=== PATIENT | female | born 1940 | race Asian ===

== ENCOUNTER 2020-12-01 20:37 | Observation (INO) | payer MEDICARE ==
[~2020-12-01] VITALS: Ht 157.5 cm; Wt 58.4 kg
[2020-12-01 20:15] VITALS: BP 150/67
--- NOTE | 2020-12-01 21:00 | NUR ---
Patient arrived to unit at approx 2000 accompanied by EMS.Patient states that she believes she was bit on the toe by a copperhead snake. Patient reports 10/10 pain in her left foot/ankle. Fang najera present on left great toe. Erythema and bruising noted on left foot. Swelling measured- left great toe 10cm, Ball of left foot 24cm, left ankle [address] Kat, do not start [employer] unless swelling increases, or pain becomes significantly worse. Pain medications ordered. Poison control was notified at [facility], call received from poison control and updated on patient status. Q1 vascular checks and q1 hr measurements ordered and started. assessment complete, VS stable. call light in reach, reminded patient to call for assistnave before ambulating. Will continue to monitor.
[2020-12-01] MEDS ORDERED: HYDROcodone/APAP 5/325MG 1 TAB TABLET PO PRN (21:15)
[2020-12-01] MEDS ORDERED: MORPHINE SULFATE 2 MG/ML INJ. IVP PRN (21:15)
[2020-12-01] MEDS ORDERED: ONDANSETRON PF 4 MG/2 ML VIAL. IV PRN (21:15)
[2020-12-01] MEDS ORDERED: MORPHINE SULFATE 2 MG/ML INJ. IV PRN (22:45)
[2020-12-01 22:50] VITALS: BP 110/62
[2020-12-02 00:41] LABS: BASO % 0 % (0-3); EOS % 0 % (0-3); HEMOGLOBIN 12.7 g/dL (12.0-15.5); LYMPH % 15 % (24-48); MEAN CORPUSCULAR HEMOGLOBIN 32 pg (25-35); MEAN CORPUSCULAR HGB CONC 33 g/dL (31-37); MEAN CORPUSCULAR VOLUME 95 fL (79-100); MONO # 0.7 x10^3/uL (0.0-1.1); MONO % 10 % (0-9); NEUT # 5.2 x10^3/uL (1.8-7.7); NEUT % 75 % (31-73); PLATELET COUNT 215 x10^3/uL (140-400); RED BLOOD COUNT 4.02 x10^6/uL (3.50-5.40); WHITE BLOOD COUNT 6.9 x10^3/uL (4.0-11.0)
[2020-12-02 00:52] LABS: PROTHROMBIN TIME PATIENT 13.1 SEC (11.7-14.0)
[2020-12-02] MEDS ORDERED: LEVO75TA5 PO (01:20)
[2020-12-02] MEDS ORDERED: SIMV20TA18 PO (01:20)
[2020-12-02 03:05] VITALS: BP 107/53
--- NOTE | 2020-12-02 05:08 | NUR ---
Pt requesting to go home today. Pt states "i need to go home today. My is not in good health and i care for him" states that they have neighbors that will check on him occasionally.
[2020-12-02 06:54] LABS: PROTHROMBIN TIME PATIENT 12.9 SEC (11.7-14.0)
[2020-12-02 07:15] VITALS: BP 110/56
--- NOTE | 2020-12-02 08:32 | PDOC1 ---
History and Physical Date of Service: DOS: DATE: 12/02/20 TIME: 08:32 Chief Complaint: Chief Complain: Snake Bite History of Present Illness: HPI: 80 yo F with PMHx of hypothyroidism who is transferred from [facility] due to a snake bite on her left toe. Pt states she was in her garden and cleaning out her rubalcava when she turned around and a snake bite her on the left toe. She saw the snake was about 2 feet long, broad appearing and the head was bigger than the body, she believed it was a Copperhead after discussing with her . She endorses 1st toe pain and swelling and redness. Denies fevers, chest pain, dizziness, LOC, or other systemic symptoms Past Medical/Surgical History: PMH/PSH: PMHx: Hypothyroidism Allergies: Allergies: Coded Allergies: No Known Drug Allergies (Unverified , 12/01/20) Family History: Family History: Reviewed with no relevant findings. Social History: Social History: Denies alcohol tobacco and drug abuse. Current Medications: Current Medications Current Medications Ondansetron HCl (Zofran) 4 mg PRN Q6HRS PRN IV NAUSEA/VOMITING 1ST CHOICE Last administered on 12/01/20at 21:23; Start 12/01/20 at 21:15 Morphine Sulfate (Morphine Sulfate) 1 mg PRN Q2HR PRN IVP SEVERE PAIN 7-10 Last administered on 12/01/20at 21:25; Start 12/01/20 at 21:15; Stop 12/01/20 at 22:44; Status DC Acetaminophen/ Hydrocodone Bitart (Lortab 5/325) 1 tab PRN Q6HRS PRN PO MODERATE PAIN 4-6; Start 12/01/20 at 21:15 Morphine Sulfate (Morphine Sulfate) 2 mg PRN Q2HR PRN IV SEVERE PAIN 7-10 Last administered on 12/01/20at 23:49; Start 12/01/20 at 22:45 Active Scripts Active Reported Levothyroxine Sodium 75 Mcg Tablet 75 Mcg PO DAILYAC Simvastatin 20 Mg Tablet 20 Mg PO DAILY ROS: Review of Systems Review of System REVIEW OF SYSTEMS: GENERAL: Denies weakness SKIN: No bruising, hair changes or rashes. EYES: No blurred, double or loss of vision. NOSE AND THROAT: No history of nosebleeds, hoarseness or sore throat. HEART: No history of palpitations, chest pain or shortness of breath on exertion. LUNGS: Denies cough, hemoptysis, wheezing or shortness of breath. GASTROINTESTINAL: Denies changes in appetite, nausea, vomiting, diarrhea or constipation. GENITOURINARY: No history of frequency, urgency, hesitancy or nocturia. NEUROLOGIC: Denies history of numbness, tingling, or tremor. PSYCHIATRIC: No history of panic, anxiety or depression. ENDOCRINE: No history of heat or cold intolerance, polyuria or polydipsia. EXTREMITIES: Positive for toe pain and swelling. Physical Exam: Vital Signs: Vital Signs Date Time Temp Pulse Resp B/P (MAP) Pulse Ox O2 Delivery O2 Flow Rate FiO2 12/02/20 03:05 98.4 88 18 107/53 (71) 92 Room Air 98.4 Physcial Exam: GEN: No apparent distress. Alert and oriented HEENT: Normal cephalic, atraumatic, external auditory canals are patent EYES: Extraocular muscles are intact, pupil are equally round and reactive to light and accommodation MUSCULOSKELETAL: Well developed , well nourished, good range of motion ENDOCRINE: No thyromegaly was palpated LYMPHATICS: No cervical chain or axillary nodes were noted HEMATOPOIETIC: No bruising NECK: Supple, no JVD, no thyromegaly was noted LUNGS: Clear to auscultation in all lung anne without rhonchi or wheezing HEART: RRR, S!, S2 present. Peripheral pulses intact, no obvious murmurs noted ABDOMEN: Soft, nontender. Positive bowel sounds, no organomegaly, normal bowel sounds EXTREMITIES: Snake bite najera on the dorsal side of the 1st digit. Swelling up to the ankle. Redness only surrounding the bite najera. Palpable DP and PT pulses. NEUROLOGIC: Normal speech and tone. A&O x 3, moves all extremities, no obvious focal deficits PSYCHIATRIC: Normal affect, normal mood. Stable SKIN: No ulcerations or rashes, good skin turgor, no jaundice VASCULAR: Good capillary refill, neurovascular bundle appears to be intact Labs: Labs: Laboratory Tests Test 12/02/20 00:30 12/02/20 05:37 White Blood Count 6.9 x10^3/uL (4.0-11.0) Red Blood Count 4.02 x10^6/uL (3.50-5.40) Hemoglobin 12.7 g/dL (12.0-15.5) Hematocrit 38.0 % (36.0-47.0) Mean Corpuscular Volume 95 fL (79-100) Mean Corpuscular Hemoglobin 32 pg (25-35) Mean Corpuscular Hemoglobin Concent 33 g/dL (31-37) Red Cell Distribution Width 14.0 % (11.5-14.5) Platelet Count 215 x10^3/uL (140-400) Neutrophils (%) (Auto) 75 % (31-73) Lymphocytes (%) (Auto) 15 % (24-48) Monocytes (%) (Auto) 10 % (0-9) Eosinophils (%) (Auto) 0 % (0-3) Basophils (%) (Auto) 0 % (0-3) Neutrophils # (Auto) 5.2 x10^3/uL (1.8-7.7) Lymphocytes # (Auto) 1.0 x10^3/uL (1.0-4.8) Monocytes # (Auto) 0.7 x10^3/uL (0.0-1.1) Eosinophils # (Auto) 0.0 x10^3/uL (0.0-0.7) Basophils # (Auto) 0.0 x10^3/uL (0.0-0.2) Prothrombin Time 13.1 SEC (11.7-14.0) 12.9 SEC (11.7-14.0) Prothromb Time International Ratio 1.0 (0.8-1.1) 1.0 (0.8-1.1) Fibrinogen 325 mg/dL (200-440) 322 mg/dL (200-440) Laboratory Tests Test 12/02/20 00:30 12/02/20 05:37 White Blood Count 6.9 x10^3/uL (4.0-11.0) Red Blood Count 4.02 x10^6/uL (3.50-5.40) Hemoglobin 12.7 g/dL (12.0-15.5) Hematocrit 38.0 % (36.0-47.0) Mean Corpuscular Volume 95 fL (79-100) Mean Corpuscular Hemoglobin 32 pg (25-35) Mean Corpuscular Hemoglobin Concent 33 g/dL (31-37) Red Cell Distribution Width 14.0 % (11.5-14.5) Platelet Count 215 x10^3/uL (140-400) Neutrophils (%) (Auto) 75 % (31-73) Lymphocytes (%) (Auto) 15 % (24-48) Monocytes (%) (Auto) 10 % (0-9) Eosinophils (%) (Auto) 0 % (0-3) Basophils (%) (Auto) 0 % (0-3) Neutrophils # (Auto) 5.2 x10^3/uL (1.8-7.7) Lymphocytes # (Auto) 1.0 x10^3/uL (1.0-4.8) Monocytes # (Auto) 0.7 x10^3/uL (0.0-1.1) Eosinophils # (Auto) 0.0 x10^3/uL (0.0-0.7) Basophils # (Auto) 0.0 x10^3/uL (0.0-0.2) Prothrombin Time 13.1 SEC (11.7-14.0) 12.9 SEC (11.7-14.0) Prothromb Time International Ratio 1.0 (0.8-1.1) 1.0 (0.8-1.1) Fibrinogen 325 mg/dL (200-440) 322 mg/dL (200-440) Images: Images No recent images to review Assessment/Plan Assessment/Plan Acute snake bite Admitted for observation Neuro vascular checks Q1h Poison control contacted for further guidance IV and PO pain control Elevate Left lower extremity. Lovenox for DVT prophylaxis DPOA is the FULL code Justifications for Admission Other Justification Snakebite BLANCA TIRADO MD Dec 02, 2020 08:32
[2020-12-02] MEDS ORDERED: DEXTROSE 50% 25 GM / 50ML DISP.SYRIN. IV PRN (08:45)
[2020-12-02] MEDS ORDERED: PROCHLORPERAZINE 10 MG/2 ML VIAL. IV PRN (08:45)
[2020-12-02] MEDS ORDERED: DOCUSATE SODIUM 100 MG CAPSULE. PO PRN (08:45)
[2020-12-02] MEDS ORDERED: ONDANSETRON PF 4 MG/2 ML VIAL. IVP PRN (08:45)
[2020-12-02] MEDS ORDERED: SENNOSIDES 8.6 MG TABLET PO PRN (08:45)
[2020-12-02] MEDS ORDERED: ACETAMINOPHEN 325 MG TABLET. PO PRN (08:45)
[2020-12-02] MEDS ORDERED: ENOXAPARIN 40 MG/0.4 ML SYRINGE. SQ SCH (09:00)
[2020-12-02 10:53] LABS: BASO % 0 % (0-3); EOS % 0 % (0-3); HEMATOCRIT 38.7 % (36.0-47.0); HEMOGLOBIN 13.1 g/dL (12.0-15.5); LYMPH % 15 % (24-48); MEAN CORPUSCULAR HEMOGLOBIN 32 pg (25-35); MEAN CORPUSCULAR HGB CONC 34 g/dL (31-37); MEAN CORPUSCULAR VOLUME 94 fL (79-100); MONO # 0.6 x10^3/uL (0.0-1.1); MONO % 8 % (0-9); NEUT # 5.4 x10^3/uL (1.8-7.7); NEUT % 77 % (31-73); PLATELET COUNT 234 x10^3/uL (140-400); RED CELL DISTRIBUTION WIDTH 13.9 % (11.5-14.5); WHITE BLOOD COUNT 7.1 x10^3/uL (4.0-11.0)
[2020-12-02 11:06] LABS: ALBUMIN 3.7 g/dL (3.4-5.0); ALBUMIN/GLOBULIN RATIO 1.1 (1.0-1.7); CALCIUM 8.7 mg/dL (8.5-10.1); CREATININE 0.7 mg/dL (0.6-1.0); GFR 80.9; MAGNESIUM 2.2 mg/dL (1.8-2.4); PHOSPHORUS 3.4 mg/dL (2.6-4.7); POTASSIUM 4.4 mmol/L (3.5-5.1); TOTAL BILIRUBIN 0.2 mg/dL (0.2-1.0)
[2020-12-02 11:30] VITALS: BP 114/56
--- NOTE | 2020-12-02 12:21 | NUR ---
SS following for discharge planning. SS reviewed pt chart and discussed with pt RN. Pt is from home with spouse and is currently on room air. Discharge plan is currently to home when medically ready for discharge. SS will continue to follow for discharge planning.
[2020-12-02 12:53] LABS: BASO % 0 % (0-3); EOS % 1 % (0-3); HEMATOCRIT 39.7 % (36.0-47.0); HEMOGLOBIN 13.2 g/dL (12.0-15.5); LYMPH # 1.3 x10^3/uL (1.0-4.8); LYMPH % 19 % (24-48); MEAN CORPUSCULAR HEMOGLOBIN 32 pg (25-35); MEAN CORPUSCULAR HGB CONC 33 g/dL (31-37); MEAN CORPUSCULAR VOLUME 95 fL (79-100); MONO # 0.6 x10^3/uL (0.0-1.1); MONO % 9 % (0-9); NEUT # 4.7 x10^3/uL (1.8-7.7); NEUT % 71 % (31-73); PLATELET COUNT 224 x10^3/uL (140-400); RED BLOOD COUNT 4.18 x10^6/uL (3.50-5.40); RED CELL DISTRIBUTION WIDTH 14.3 % (11.5-14.5); WHITE BLOOD COUNT 6.7 x10^3/uL (4.0-11.0)
[2020-12-02 13:08] LABS: PROTHROMBIN TIME PATIENT 12.7 SEC (11.7-14.0)
[2020-12-02 13:29] VITALS: BP 114/56
[2020-12-02] MEDS ORDERED: IBUP-1027 PO (13:58)
--- NOTE | 2020-12-02 14:00 | DISCH ---
DISCHARGE INSTRUCTIONS Condition on Discharge Condition on Discharge: Stable Activity After Discharge Activity Instructions for Disc: Activity as tolerated Lifting Instructions after Dis: Do not lift >10 pounds Exercise Instruction after Dis: Walk 15 min, 3 x per day Driving Instructions after Dis: Do not drive today Weight Bearing Status after Di: As tolerated Diet after Discharge Diet after Discharge: Cardiac Contacting the DR. after DC Call your doctor for: If your condition worsens (If swelling worsens or pain is increased please go to urgent care immediately.) Follow-Up Follow up with: PCP within 2 weeks of discharge BLANCA TIRADO MD Dec 02, 2020 14:00
[2020-12-02] MEDS ORDERED: DOXY100T PO (14:01)
--- NOTE | 2020-12-02 15:25 | NUR ---
Discharge Note: [facility] Discharge instructions and discharge home medications reviewed with Patient and a copy given. All questions have been answered and understanding verbalized. The following instructions and handouts were given: discharge instructions, med list, follow up, snake bite education, poison control contact number. Discontinued lines and drains: Peripheral IV intact. Patient discharged to Home or Self Care with Friend via Wheelchair at 1525. Poison control notified of patient's discharge. Addendum: 12/02/20 at 1921 by LORENA BAIG RN Patient's swelling of LLE remained the same all day.
--- NOTE | 2020-12-06 08:14 | PDOC3 ---
[facility]-Discharge Summary Date of Admission: Date of Admission: Dec 02, 2020 Date of Discharge: Date of Discharge: Dec 02, 2020 Discharge Diagnosis: Discharge Diagnosis: Acute snake bite Hypothyroidism Mild wound infection with cellulitis Hospital Course: Hospital Course: 80 yo F with PMHx of hypothyroidism who is transferred from [facility] due to a snake bite on her left toe. Pt states she was in her garden and cleaning out her rubalcava when she turned around and a snake bite her on the left toe. She saw the snake was about 2 feet long, broad appearing and the head was bigger than the body, she believed it was a Copperhead after discussing with her . She endorses 1st toe pain and swelling and redness. Denies fevers, c hest pain, dizziness, LOC, or other systemic symptoms By day of discharge, pt was clinically stable and ready for discharge. Leg swelling was stable and pulses were palpable. Sent home with doxycycline and pain meds. Rest of hospital course was uneventful Disposition: Disposition/Orders: D/C to Home Activity: Activity: Resume previous activity Diet: Diet: Regular Medications: Home Meds Active Scripts Doxycycline Hyclate (DOXYCYCLINE HYCLATE) 100 Mg Tablet, 1 TAB PO BID for foot infection for 3 Days, #6 TAB Prov:BLANCA TIRADO MD 12/02/20 Ibuprofen (IBUPROFEN) 400 Mg Tablet, 400 MG PO PRN Q6HRS PRN for INFLAMMATION for 7 Days, #30 TAB Prov:BLANCA TIRADO MD 12/02/20 Reported Medications Levothyroxine Sodium (LEVOTHYROXINE SODIUM) 75 Mcg Tablet, 75 MCG PO DAILYAC for THYROID SUPPLEMENT, #30 TAB 0 Refills 12/02/20 Simvastatin (SIMVASTATIN) 20 Mg Tablet, 20 MG PO DAILY for FOR CHOLESTEROL, #30 TAB 0 Refills 12/02/20 Scheduled Doxycycline Hyclate (Doxycycline Hyclate), 1 TAB PO BID Levothyroxine Sodium (Levothyroxine Sodium), 75 MCG PO DAILYAC, (Reported) Simvastatin (Simvastatin), 20 MG PO DAILY, (Reported) Scheduled PRN Ibuprofen (Ibuprofen), 400 MG PO PRN Q6HRS PRN for INFLAMMATION Total Time: Total Time: Total time spent was 45 minutes in preparing scripts, discharge planning with SW and RN, and preparing this discharge summary. Justicifation of Admission Dx: Justifications for Admission: Justification of Admission Dx: Yes Cellulitis: Cellulitis BLANCA TIRADO MD Dec 06, 2020 08:14
== END 2020-12-02 15:17 | disposition home or self-care (01) ==
LOC: 6 SOUTH 20:37 → INTOOBSV 20:37
PROVIDERS: ADMIT Internal Medicine; ATTEND Internal Medicine
DX: T63.001A Toxic effect of unspecified snake venom, accidental (unintentional), initial encounter (principal); E03.9 Hypothyroidism, unspecified; L03.116 Cellulitis of left lower limb; Y92.89 Other specified places as the place of occurrence of the external cause
CPT/HCPCS: 36415; 80053; 82550; 83735; 84100; 85025; 85384; 85610; 96372; 96374; 96375; 96376; G0378; J1650; J2270; J2405; G0379